=== PATIENT | female | born 1940 | race Caucasian/White ===

== ENCOUNTER 2017-01-03 07:00 | Inpatient (IN) | payer OTHER ==
[~2017-01-03] VITALS: Ht 162.6 cm; Wt 55.3 kg
[~2017-01-03 07:00] MED LIST: ASPIRIN EC81 M1 PO; NADOLOL20 M1 PO; RESTASIS1 EACH OPH
--- NOTE | 2017-01-22 14:14 | RADIOLOGY REPORT ---
EXAMINATION: XR HIP, RIGHT CLINICAL INFORMATION: Postoperative COMPARISON: None TECHNIQUE: Two views of the right hip. FINDINGS: Prosthetic components of the right total hip arthroplasty are appropriately aligned. No periprosthetic fracture. Gas from recent surgery is present in the surrounding soft tissues. IMPRESSION: Normal postoperative appearance of the right total hip prosthesis.
--- NOTE | 2017-01-22 15:08 | Admission Core Measures ---
Admission Meds I reviewed the following Meds: Current Medications Sig/Sarina Start time Last Medication Dose Stop Time Status Admin Acetaminophen 975 MG ONCE 01/22 AC (Tylenol) 01/22 2359 Artificial Tears 2 GTT BID 01/22 2200 AC (Tears Natural) Cefazolin Sodium 2,000 MG ONCE 01/22 NR (Kefzol-Ancef Inj) 01/22 2359 Nadolol 10 MG DAILY 01/23 1000 AC (Corgard) Oxycodone HCl 10 MG ONCE 01/22 AC (Roxicodone) 01/22 2359 Acute Coronary Syndrome Inclusion Criteria ACS Diagnosis No Inpatient Core Measures LDL Reminder: If No, please order W/I first 24hr of stay Congestive Heart Failure Inclusion Criteria CHF Diagnosis No Cerebrovascular accident Inclusion Criteria CVA/TIA Diagnosis No Inpatient Core Measures Bedside Swallow Eval Reminder: If BSE failed, place ST order Antithrombotic Reminder: Order Antithrombotic Medication by end of day 2 Antithrombotic Reminder: Document Reason Antithrombotic Not ordered by end of day 2 AFIB/Flutter Reminder: If Present, add to problem list AFIB/Flutter Reminder: Order Anticoag Medication for pts with AFIB/Flutter Atherosclerosis Reminder: If Present, add to problem list LDL Reminder: If No, please order W/I first 24hr of stay PT Order Reminder: If No, please order Venous thromboembolism Inpatient Core Measures VTE Risk Factors: Age > 40, Surgery No [facility] VTE prophylaxis d/t No contraindications No VTE Pharm Prophylaxis d/t No contraindications Inclusion Criteria - Per Current guidelines, there needs to be overlap - treatment for the first 5 days of Warfarin therapy. - Parenteral Anticoagulation (IV or SC) needs to be - given along with Warfarin therapy. VTE Diagnosis No VTE Type NONE VTE Confirmed by (Test) NONE Problem List As ranked by this Provider includes Assessment & Plan 1. Unilateral primary osteoarthritis, right hip HOME MEDS Home Med List Aspirin (Ecotrin*) 81 MG TABLET.DR 1 TAB PO DAILY CAD (Reported) Cyclosporine (Restasis) 0.05 % DROPERETTE 1 GTT OPH BID DRY EYE (Reported) Nadolol 20 MG TABLET 0.5 TAB PO DAILY BP (Reported)
[2017-01-22] MEDS ORDERED: ASPIRIN EC81 M1 PO (15:15)
[2017-01-22] MEDS ORDERED: DILAUDID2 M1 PO (15:15)
[2017-01-22] MEDS ORDERED: MIRALAX17 G1 PO (15:15)
[2017-01-22] MEDS ORDERED: COLACE100 M1 PO (15:15)
--- NOTE | 2017-01-22 15:23 | Patient Discharge Instructions ---
Discharge Instructions General Discharge Information You were seen/treated for: Right hip pain related to unilateral primary osteoarthritis You had these procedures: Right total hip replacement Watch for these problems: Increasing pain despite the use of pain medication Increasing redness, warmth or swelling Drainage of any type from incision Inability to bear weight on operative leg Persistent nausea and vomiting Fever greater than 101.5 degrees Do not soak the wound: Yes No bath, but you may shower: Yes Other wound care: Please keep wound clean and dry. No ointments or lotions of any type on or near incision at any time. No exceptions. Your dressing will be changed by your nurse on the second day after your surgery. Daily dry dressing changes are recommended each day thereafter. Do not soak your wound in a bath at any time until otherwise indicated by your surgeon. You may shower, please dry wound immediately after shower with a clean towel. Special Instructions: Aspirin: You are taking this medication to help prevent blood clot formation. Please take with food to protect your stomach lining. Please take as directed. Constipation: Pain medication can cause constipation. Dr. Patel has recommended that you take Colace and miralax each day. You may discontinue this medication if you develop loose stool or diarrhea. If you wish to continue this medication, it is available over the counter. If you are unable to move your bowels after several days, if you are unable to pass gas and are developing bloating, nausea, or vomiting as a result, please contact your doctor. Diet Continue normal diet: Yes Recommended Diet: Regular Activity Full Activity/No Limits: No Activity Self Limited: Yes Pounds, do NOT lift more than: 10 Activity Limited to: Weight bear as tolerated Acute Coronary Syndrome Inclusion Criteria At DC or during hospital stay patient has or had the following: ACS DIAGNOSIS No Discharge Core Measures Meds if any: Prescribed or Continued at Discharge Meds if any: NOT Prescribed or Continued at Discharge Congestive Heart Failure Inclusion Criteria At DC or during hospital stay patient has or had the following: CHF DIAGNOSIS No Discharge Core Measures Meds if any: Prescribed or Continued at Discharge Meds if any: NOT Prescribed or Continued at Discharge Cerebrovascular accident Inclusion Criteria At DC or during hospital stay patient has or had the following: CVA/TIA Diagnosis No Discharge Core Measures Meds if any: Prescribed or Continued at Discharge Meds if any: NOT Prescribed or Continued at Discharge Venous thromboembolism Inclusion Criteria VTE Diagnosis No VTE Type NONE VTE Confirmed by (Test) NONE Discharge Core Measures - Per Current guidelines, there needs to be overlap - treatment for the first 5 days of Warfarin therapy. - If discharged on Warfarin prior to 5 days of - overlap therapy, the patient will need to be - assessed for post discharge needs including - *Post discharge parental anticoagulation - *Warfarin and/or parental anticoagulation education - *Follow up date to check INR post discharge At least 5 days overlap therapy as Inpatient No Meds if any: Prescribed or Continued at Discharge Note: Overlap Therapy is Warfarin and Anticoagulant Meds if any: NOT Prescribed or Continued at Discharge
--- NOTE | 2017-01-22 15:24 | Surgical Discharge Summary ---
Visit Information Visit Dates Admission Date: 01/22/17 Discharge Date: 01/25/17 History of Present Illness Chief Complaint: Right hip pain related to unilateral primary osteoarthritis Surgical History Pertinent Surgical History: non-contributory Review of Systems: See H&P Hospital Course Course Attending Physician: DHIRAJ POWERS MD Primary Care Physician: HORTENCIA RICHTER,[facility] Course: Patient was admitted to the hospital for an elective total joint replacement. The procedure was tolerated well and patient was transferred to a general surgical floor. She had some post-operative nausea, that improved after stopping dilaudid. Her pain has been controlled with tramadol. Her diet was advanced as tolerated, and the patient has been voiding without difficulty. The patient was evaluated and treated by physical therapy. At the time of hospital discharge, the vital signs were stable, neurovascular status was intact, and pain was controlled with the use of oral pain medications. Complications: None Allergies: Coded Allergies: ingenol mebutate (From PICATO) (Intermediate, RASH 01/01/17) phenytoin (From DILANTIN) (Intermediate, RASH 01/01/17) NSAIDS (Non-Steroidal Anti-Inflamma (CONTRAINDICATED / HX ULCERS 01/01/17) aspirin (UNKNOWN 01/19/17) ASPIRIN PER ANTIBIOTIC ORDER SHEET OF 01/19/17 (SJS) Disposition Summary Disposition Principal Diagnosis: Right hip unilateral primary osteoarthritis Additional Diagnosis: none Discharge Disposition: home health services Discharge Instructions General Discharge Information Code Status: Full Code Patient's Diet: Advance as tolerated Patient's Activity: WBAT. Rolling walker assistance. Follow-Up Instructions/Appts: Follow up with Dr. Powers in 6 weeks from date of surgery. Please call his office to arrange and/or confirm this appointment. Medications at Discharge Discharge Medications: Stop taking the following medications: Aspirin (Ecotrin*) 81 MG TABLET. ORAL DAILY Continue taking these medications: Nadolol (Nadolol) 20 MG TABLET 0.5 Tablet ORAL DAILY Cyclosporine (Restasis) 0.05 % DROPERETTE 1 Drop In the eye TWICE DAILY Start taking the following new medications: Aspirin (Ecotrin*) 81 MG TABLET. 2 Tablet ORAL TWICE DAILY Qty = 120 No Refills Docusate Sodium (Colace) 100 MG CAPSULE 1 Capsule ORAL TWICE DAILY Qty = 14 No Refills Instructions: DISCONTINUE USE IF YOU DEVELOP LOOSE STOOL OR DIARRHEA Polyethylene Glycol 3350 (Miralax) 17 GRAM POWD.PACK 1 Packet ORAL DAILY Qty = 7 No Refills Instructions: dissolve in water, DISCONTINUE USE IF YOU DEVELOP LOOSE STOOL OR DIARRHEA Famotidine (Pepcid) 20 MG TABLET 1 Tablet ORAL TWICE DAILY Qty = 60 No Refills Tramadol HCl (Tramadol HCl) 50 MG TABLET 1 Tablet ORAL EVERY SIX HOURS NEEDED as needed for pain Qty = 30 No Refills Copies To: HORTENCIA RICHTER,BRIONNA
[2017-01-22] MEDS ORDERED: PEPCID20 M1 PO (15:25)
--- NOTE | 2017-01-22 15:57 | Operative Report ---
Operative/Inv Procedure Report Surgery Date: 01/22/17 Name of Procedure: Right total hip replacement Pre-Operative Diagnosis: Primary right hip DJD Post-Operative Diagnosis: Same Estimated Blood Loss: 250 Surgeon/Azure Architect: PRIYA RICHTER,DHIRAJ Rice Anesthesia: block Operative/Procedure Note Note: Description of Procedure: The patient was taken to the operating room and positively identified. After induction of spinal anesthesia and administration of appropriate pre-operative antibiotics, the patient was positioned supine on the operating room table and all bony prominences were well padded. After performing a surgical timeout, the right lower extremity was prepped and draped in the usual sterile fashion. A direct anterior approach was made to the right hip. The incision was carried sharply through superficial soft tissues to the level of the fascia. Meticulous hemostasis was maintained with Bovie electocautery. The fascia over the tensor fascia ananya muscle was opened sharply and the interval between the TFL and the sartorius was entered bluntly taking care to stay lateral to the lateral femoral cutaneous nerve. Retractors were placed around the femoral neck and the pericapsular fat was identified. The ascending branches of the lateral femoral circumflex vessels were identified and carefully coagulated. The pericapsular fat and anterior capsule were then resected. A napkin ring osteotomy was performed and the femoral head was removed without difficulty. Attention was then turned to the acetabulum. After appropriate placement of retractors, the acetabulum was exposed. Soft tissue was cleaned from the acetabular margin and notch. Overhanging osteophytes were removed and the teardrop was exposed. The acetabulum was then sequentially reamed to accept a 56 mm Michelle Tritanium hemispherical solid back shell. This was impacted into place in the appropriate position and fitted with a 36 mm Trident X3 zero degree polyethylene insert. Attention was then turned to the femur. After performing the appropriate ligament releases, the proximal femur was exposed. It was then sequentially broached to accept a size 5 [place] Accolade 2 stem. This was trialed for leg length and stability. The trial component was removed and the final component was impacted into place. The trunnion was carefully cleaned and fit with a 36 mm, +5 Biolox delta ceramic femoral head. The hip was reduced and put through a full range of motion and found to be stable. The articular space was then irrigated with sterile saline. The periarticular soft tissues were infilitrated with Marcaine. The fascial layer was closed with interrupted #1 vicryl suture and the skin was re-approximated with interrupted 2 -0 vicryl. The skin was closed with a running 3-0 V-Lock suture. Steri-strips and a sterile dressing were applied. The patient was awakened and taken to the recovery room in satisfactory condition.
[2017-01-22 16:30] VITALS: BP 126/68
--- NOTE | 2017-01-22 16:38 | NUR ---
PT ARRIVED AT THIS TIME FROM PACU ALERT ORIENTED X 3 ON RA BP 126/68 HR 66 94% ON RA RR 17, 90.2 ORALLY- WILL CHECK RECTAL ONCE PT IS IN ROOM. PT ASSISTED X 1 WITH GAIT BELT AND RW TO RECLINER CHAIR. +PP STATES SOME NUMBNESS ABLE TO MOVE BLE, DRESSING TO RIGHT HIP CD+I. SKIN INTACT. DENIES PAIN ORIENTED TO ROOM AND CALL CHRISTIE. WILL MONITOR
--- NOTE | 2017-01-22 17:29 | PN- Orthopedic ---
Subjective Subjective: Post op checK: Patient reporting no acute post operative events. Procedure was tolerated well. She is presently sitting at bedside reporting at most a dull ache in the surgical site. She denies chest pain, shortness of breath and difficulty breathing. She denies nausea and vomitting. Objective Vital Signs and I&Os Vital Signs Date Time Temp Pulse Resp B/P B/P Pulse O2 O2 Flow FiO2 Mean Ox Delivery Rate 01/22 1630 90.2 66 18 126/68 94 Room Air Physical Exam: General: Alert and oriented x3, no acute distress Cardiac: RRR, s1s2 Pulm: CTA bilaterally Abdomen: Non-distended Extremities: Moves all extremities, distal sensation intact. Skin warm and well perfused. Bilateral calves soft and non-tender Surgical site: Right groin. Dressing dry and intact. Thigh compartment soft. 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 She is pod 0 s/p right total hip replacement. -DVT ppx: ASA 162 bid, alps -ABX ppx: Ancef 2 gram x2 additional doses -Pain: Offirmev q6h, dilaudid 2-4 mg q4-6 prn with 2 mg of iv morphine q2h for breakthrough -Activity: WBAT -Bowel regimen: Colace bid and miralax daily -GI ppx: Pepsid 20 bid -DIet: Regular, advance as tolerated -D/C iv fluids when voiding and tolerating adequate po -F/U labs in am: CBC, BEP -Incentive spirometer encouraged -Will discuss with DR. Patel Core Measures/Miscellaneous Venous Thromboembolism VTE Risk Factors: Age > 40, Surgery VTE Contraindications: No Contraindications VTE Diagnosis: No VTE Type: NONE VTE Confirmed by (Test): NONE Beta Chana Is Beta Chana a Home Med? No Antibiotics Is Patient on Antibiotics? Yes If Yes: prophylaxis
[2017-01-22 19:03] VITALS: BP 90/60
[2017-01-22 21:00] VITALS: BP 110/60
--- NOTE | 2017-01-22 23:10 | NUR ---
SHIFT NOTE- PT A/O X 3, RA, IST, TOLERATING PO FLUIDS AND DINNER WELL. DENIES NAUSEA. VOIDED 950 CC CLEAR YELLOW URINE IN HAT IN TOLIET. DRESSING TO R HIP REMAINS CD+I. +CMS. +PP +POST TIB PULSES. MIN ASSIST X 1 WITH RW TO AMBULATE IN ROOM. VSS. ALPS IN PLACE. MEDICATED WITH SCHEDULED IV TYLENOL AND PRN DILAUDID X 1 FOR C/O PAIN TO RIGHT HIP WITH STATED RELIEF. IVF INFUSING ORDERED. RECIEVED IV ABX ORDERED. SAFETY PRECAUTIONS MAINTAINED.
[2017-01-22 23:27] VITALS: BP 98/60
[2017-01-23 01:52] VITALS: BP 102/54
[2017-01-23 06:42] VITALS: BP 98/40
[2017-01-23 09:02] LABS: ABSOLUTE BASOPHIL COUNT 0 /CUMM (0.0-0.2); ABSOLUTE EOSINOPHIL COUNT 0 /CUMM (0.0-0.7); ABSOLUTE GRANULOCYTE CT 7.9 /CUMM (1.4-6.5); ABSOLUTE LYMPH COUNT 1.1 /CUMM (1.2-3.4); ABSOLUTE MONOCYTE COUNT 0.8 /CUMM (0.10-0.60); BASOPHIL % 0.4 % (0.0-2.0); EOSINOPHIL % 0.1 % (0-5); GRANULOCYTE % 80.9 % (42.2-75.2); HEMATOCRIT 36.7 % (37-47); MEAN CORPUSCULAR HGB 32.8 PG (27.0-31.0); MEAN CORPUSCULAR HGB CONC 33.5 G/DL (33.0-37.0); MEAN CORPUSCULAR VOLUME 97.7 FL (81.0-99.0); MEAN PLATELET VOLUME 10.1 FL (7.4-10.4); PLATELET COUNT 173 /CUMM (130-400); RBC DISTRIBUTION WIDTH 12.9 % (11.5-14.5); RED BLOOD CELL CT 3.76 /CUMM (4.20-5.40); WHITE BLOOD CELL COUNT 9.8 /CUMM (4.8-10.8)
--- NOTE | 2017-01-23 09:32 | PN- Orthopedic ---
Subjective Subjective: Patient reporting no acute overnight events. She states that her pain was more pronounced in the early am, however, it responds well to po pain medication. She denies chest pain, shortness of breath and difficulty breathing. She did have one episode of emesis following dilaudid and was switched to percocet and is tolerating well. She is voiding. Objective Vital Signs and I&Os Vital Signs Date Time Temp Pulse Resp B/P B/P Pulse O2 O2 Flow FiO2 Mean Ox Delivery Rate 01/23 0642 96.7 62 18 98/40 91 Room Air 01/23 0152 96.5 63 18 102/54 94 Room Air 01/22 2327 96.0 68 20 98/60 93 Room Air 01/22 2100 95.9 70 20 110/60 94 Room Air 01/22 1903 96.0 74 20 90/60 96 Room Air 01/22 1736 95.6 01/22 1630 90.2 66 18 126/68 94 Room Air Intake & Output 01/23 1600 01/23 0800 01/23 0000 01/22 1600 01/22 0800 01/22 0000 Intake Total 800 600 Output Total 700 1000 Balance 100 -400 Intake, IV 600 600 Intake, Oral 200 Output, Urine 700 1000 Patient 122 lb Weight Physical Exam: General: Alert and oriented x3, no acute distress Cardiac: RRR, s1s2 Pulm: C T A bilaterally Abd: Soft andn non-tender, non-distended Extremities: Moves all extremities, distal sensation intact, skin warm and well perfused. DP pulses palpable bilaterally. 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 She is pod 1 s/p right total hip replacement. -Switch dilaudid to oxycodone while in house, plan for discharge on percocet -OOB with pt, wbat -Continue asa 162 bid for dvt ppx -Diet as tolerated -DC iv fluids -FU am labs -Anticipate discharge to home with services tomorrow -Will d/w dr. Patel Core Measures/Miscellaneous Venous Thromboembolism VTE Risk Factors: Age > 40, Surgery VTE Contraindications: No Contraindications VTE Diagnosis: No VTE Type: NONE VTE Confirmed by (Test): NONE Beta Chana Is Beta Chana a Home Med? No Antibiotics Is Patient on Antibiotics? Yes If Yes: prophylaxis
[2017-01-23] MEDS ORDERED: PERCOCET 5-3251 EACH PO (11:31)
--- NOTE | 2017-01-23 13:55 | NUR ---
PHYSICAL THERAPY: Pt WITH GUESTS PRESENT AND AGREEABLE TO GET OOB WITH PT. REPORTING NAUSEA AND HAS REFUSED ANY ANTI NAUSEA MEDICINE BECAUSE SHE DOES NOT LIKE FEELING "LOOPY" PER NURSING. CANCELLING TREATMENT TODAY 2/2 Pt ACTIVELY VOMITTING. WILL FOLLOW UP WHEN APPROPRIATE. THANK YOU.
[2017-01-23 14:53] VITALS: BP 118/70
[2017-01-23 22:07] VITALS: BP 120/58
[2017-01-24 06:30] VITALS: BP 112/70
[2017-01-24] MEDS ORDERED: TRAMADOL HCL50 M1 PO (08:09)
--- NOTE | 2017-01-24 08:09 | PN- Orthopedic ---
Subjective Subjective: Patient reporting improvement in nausea overnight, has not vomitted since yesterday afternoon. Pain is intermittent, mainly in groin. She has been able to ambulate and was cleared for discharge to home by physical therapy. She denies chest pain, shortness of breath and difficulty breathing. She has been voiding. She has been passing flatus. She has yet to move her bowels. Objective Vital Signs and I&Os Vital Signs Date Time Temp Pulse Resp B/P B/P Pulse O2 O2 Flow FiO2 Mean Ox Delivery Rate 01/24 0630 98.7 81 18 112/70 96 Room Air 01/23 2207 98.2 75 20 120/58 97 01/23 2147 75 120/58 01/23 1453 97.6 68 18 118/70 93 Room Air Intake & Output 01/24 0800 01/24 0000 01/23 1600 01/23 0800 01/23 0000 01/22 1600 Intake Total 120 390 580 800 600 Output Total 1500 300 330 137 9407 Balance -1380 90 -220 100 -400 Intake, IV 150 100 600 600 Intake, Oral 120 240 480 200 Number 0 Bowel Movements Output, 200 Emesis Output, Urine 1500 300 840 182 9998 Patient 122 lb Weight Physical Exam: General: Alert and oriented x3, no acute distress Cardiac: RRR, s1s2 Pulm: C T A bilaterally Abdomen: Non-tender, non-distended Extremities: Moves all extremities, distal sensation intact, skin warm and well perfused. DP pulses palpable. Bilateral calves soft and non-tender Dressing: Changed. Steri strips in place, dry and intact. Bruising noted around incision, mild swelling. Thigh compartment soft. Assessment/Plan Assessment/Plan This is a 76 year old female, POD 2, s/p R THR. Post operative course complicated by nausea and vomitting. Pain medications have been changed from dilaudid to tramadol with good effect -Continue tramadol po q4 hours as needed for now, assess nausea -No iv nsaids, hx of ulcer -Continue asa 162 bid for dvt ppx -Continue oob -Plan for discharge to home when tolerating po -Will discuss with Dr Patel Core Measures/Miscellaneous Venous Thromboembolism VTE Risk Factors: Age > 40, Surgery VTE Contraindications: No Contraindications VTE Diagnosis: No VTE Type: NONE VTE Confirmed by (Test): NONE Beta Chana Is Beta Chana a Home Med? No Antibiotics Is Patient on Antibiotics? Yes If Yes: prophylaxis
[2017-01-24 15:08] VITALS: BP 134/62
[2017-01-24 21:53] LABS: ABSOLUTE BASOPHIL COUNT 0 /CUMM (0.0-0.2); ABSOLUTE EOSINOPHIL COUNT 0 /CUMM (0.0-0.7); ABSOLUTE GRANULOCYTE CT 6.1 /CUMM (1.4-6.5); ABSOLUTE LYMPH COUNT 1.2 /CUMM (1.2-3.4); ABSOLUTE MONOCYTE COUNT 0.7 /CUMM (0.10-0.60); BASOPHIL % 0.5 % (0.0-2.0); EOSINOPHIL % 0.5 % (0-5); GRANULOCYTE % 75.8 % (42.2-75.2); HEMATOCRIT 40.8 % (37-47); MEAN CORPUSCULAR HGB 32.4 PG (27.0-31.0); MEAN CORPUSCULAR HGB CONC 33.1 G/DL (33.0-37.0); MEAN CORPUSCULAR VOLUME 97.7 FL (81.0-99.0); MEAN PLATELET VOLUME 9.8 FL (7.4-10.4); PLATELET COUNT 169 /CUMM (130-400); RBC DISTRIBUTION WIDTH 12.6 % (11.5-14.5); RED BLOOD CELL CT 4.17 /CUMM (4.20-5.40); WHITE BLOOD CELL COUNT 8.1 /CUMM (4.8-10.8)
[2017-01-24 22:41] VITALS: BP 142/82
--- NOTE | 2017-01-25 00:14 | NUR ---
LATE ENTRY: 01/24/17 PT COMPLAINING OF NAUSEA FOR THE LAST 48 HOURS. NO VOMITTING THIS DAY. UNABLE TO TOLERATE ZOFRAN AND RELUCTANT TO TRY OTHER MEDS. THIS RN ENCOURAGED PHENERGEN. PT WANTED TO SPEAK WITH SURGICAL PA. SURGICAL PA CLAUDIA KABA SPOKE W/FAMILY/PT. ORDERED BLOOD WORK TO CHECK ELECTROLYTES. PT AGREED TO TAKE PHENERGEN. PT WILL CONTINUE TO BE MONITORED FOR UNRESOLVED NAUSEA.
[2017-01-25 06:47] VITALS: BP 138/70
[2017-01-25 08:37] LABS: ABSOLUTE BASOPHIL COUNT 0 /CUMM (0.0-0.2); ABSOLUTE EOSINOPHIL COUNT 0.1 /CUMM (0.0-0.7); ABSOLUTE GRANULOCYTE CT 4.3 /CUMM (1.4-6.5); ABSOLUTE LYMPH COUNT 1.4 /CUMM (1.2-3.4); ABSOLUTE MONOCYTE COUNT 0.7 /CUMM (0.10-0.60); BASOPHIL % 0.4 % (0.0-2.0); GRANULOCYTE % 65.6 % (42.2-75.2); MEAN CORPUSCULAR HGB 32.6 PG (27.0-31.0); MEAN CORPUSCULAR HGB CONC 33.6 G/DL (33.0-37.0); MEAN PLATELET VOLUME 10.5 FL (7.4-10.4); PLATELET COUNT 163 /CUMM (130-400); RBC DISTRIBUTION WIDTH 12.8 % (11.5-14.5); RED BLOOD CELL CT 3.68 /CUMM (4.20-5.40); WHITE BLOOD CELL COUNT 6.6 /CUMM (4.8-10.8)
--- NOTE | 2017-01-25 09:02 | PN- Orthopedic ---
Subjective Subjective: Feeling much better this morning. Nausea resolved. Tolerated breakfast. Pain controlled. Voiding well. No bm yet, but passing flatus. She is anticipating discharge to home today. Objective Vital Signs and I&Os Vital Signs Date Time Temp Pulse Resp B/P B/P Pulse O2 O2 Flow FiO2 Mean Ox Delivery Rate 01/25 0647 99.8 95 18 138/70 93 Room Air 01/24 2241 98.3 74 20 142/82 96 Room Air 01/24 2118 72 142/82 01/24 1508 98.6 73 20 134/62 97 Intake & Output 01/25 1600 01/25 0801/25 0000 01/24 1600 01/24 0800 01/24 0000 Intake Total 100 240 360 120 390 Output Total 4189 169 8536 300 Balance -1850 -510 360 -1380 90 Intake, IV 150 Intake, Oral 100 240 360 120 240 Number 0 0 0 Bowel Movements Output, Urine 6519 133 3258 300 Physical Exam: General - alert & oriented x 3. comfortable. no acute distress. Lungs - clear bilaterally. no w/r/r. Cardiac - s1s2. reg. Abdomen - soft. nontender. Extremities - warm bilaterally. right hip dressing removed. incision approximated with steri strips. no erythema or exudates. nvi. calves soft and nontender b/l. Current Medications: Current Medications Sig/Sarina Start time Last Medication Dose Route Stop Time Status Admin Acetaminophen 650 MG Q4P PRN 01/23 1800 AC PO Artificial Tears 2 GTT BID 01/22 2200 AC 01/23 OU 1015 Aspirin Buffered 162 MG BID 01/22 2200 AC 01/25 PO 0854 Docusate Sodium 100 MG BID 01/22 2200 AC 01/25 PO 0854 Famotidine 20 MG BID 01/22 2200 AC 01/25 PO 0854 Morphine Sulfate 2 MG Q2P PRN 01/22 164 AC IV Nadolol 10 MG AT BEDTIME 01/22 2200 AC 01/24 PO 2117 Omeprazole 20 MG DAILY AC 01/25 07 AC 01/25 PO 0552 Ondansetron HCl 4 MG Q6P PRN 01/22 1645 AC 01/23 IV 0852 Polyethylene Glycol 17 GM DAILY 01/23 1000 AC 01/25 PO 0855 Promethazine HCl 12.5 MG Q6P PRN 01/22 1645 AC 01/24 IV 01/29 1429 2102 Scopolamine HBr 1 PAT ONE ONE 01/24 2100 DC TOP 01/24 2101 Tramadol HCl 50 MG Q4P PRN 01/23 1800 AC 01/25 PO 0552 Results Last 48 Hours of Labs: Laboratory Tests 01/25 01/24 0620 2135 Chemistry Sodium (137 - 145 mmol/L) 135 L 131 L Potassium (3.5 - 5.1 mmol/L) 3.7 4.3 Chloride (98 - 107 mmol/L) 100 94 L Carbon Dioxide (22 - 30 mmol/L) 28 31 H Anion Gap (5 - 16) 7 6 BUN (7 - 17 mg/dL) 7 9 Creatinine (0.5 - 1.0 mg/dL) 0.5 0.6 Estimated GFR (>60 ml/min) > 60 > 60 BUN/Creatinine Ratio (7 - 25 %) 14.0 15.0 Phosphorus (2.5 - 4.5 mg/dL) 3.1 Magnesium (1.6 - 2.3 mg/dL) 1.8 Hematology CBC w Diff Pending NO MAN DIFF REQ WBC (4.8 - 10.8 /CUMM) Pending 8.1 RBC (4.20 - 5.40 /CUMM) Pending 4.17 L Hgb (12.0 - 16.0 G/DL) Pending 13.5 Hct (37 - 47 %) Pending 40.8 MCV (81.0 - 99.0 FL) Pending 97.7 MCH (27.0 - 31.0 PG) Pending 32.4 H RDW (11.5 - 14.5 %) Pending 12.6 Plt Count (130 - 400 /CUMM) Pending 169 MPV (7.4 - 10.4 FL) Pending 9.8 Gran % (42.2 - 75.2 %) 75.8 H Lymphocytes % (20.5 - 51.1 %) 14.2 L Monocytes % (1.7 - 9.3 %) 9.0 Eosinophils % (0 - 5 %) 0.5 Basophils % (0.0 - 2.0 %) 0.5 Absolute Granulocytes (1.4 - 6.5 /CUMM) 6.1 Absolute Lymphocytes (1.2 - 3.4 /CUMM) 1.2 Absolute Monocytes (0.10 - 0.60 /CUMM) 0.7 H Absolute Eosinophils (0.0 - 0.7 /CUMM) 0 Absolute Basophils (0.0 - 0.2 /CUMM) 0 PUBS MCHC (33.0 - 37.0 G/DL) Pending 33.1 Assessment/Plan Assessment/Plan This 76 year old female with hx htn, ulcers, mvr, hx cva, now POD#3 s/p right total hip replacement for primary right hip DJD, improved nausea after stopping dilaudid tolerating diet pain controlled with tramadol asa bid - dvt ppx dressing changed continue PT lytes stable d/c home today with services if cleared by PT will d/w Core Measures/Miscellaneous Venous Thromboembolism VTE Risk Factors: Age > 40, Surgery VTE Contraindications: No Contraindications VTE Diagnosis: No VTE Type: NONE VTE Confirmed by (Test): NONE Beta Chana Is Beta Chana a Home Med? No Antibiotics Is Patient on Antibiotics? Yes If Yes: prophylaxis
[2017-01-25 09:11] LABS: HEMATOCRIT 35.7 % (37-47)
[2017-01-25 15:37] VITALS: BP 98/58
== END 2017-01-25 15:41 | disposition home health service (06) | DRG 470 ==
LOC: SDA 01-22 04:43 → ENRESERV 01-22 14:53 → ENTRNSPT 01-22 15:43 → 2NA 01-22 16:37 → CMPTRNSPT 01-22 16:50 → ENPENDDIS 01-25 09:28 → 2NA 01-25 15:41
PROVIDERS: Nurse Practitioner; ADMIT Orthopaedic Surgery
PROC: 0SR904A Replacement of Right Hip Joint with Ceramic on Polyethylene Synthetic Substitute, Uncemented, Open Approach (ICD-10-PCS; principal; 2017-01-22)
DX: M16.11 Unilateral primary osteoarthritis, right hip (principal); I10 Essential (primary) hypertension; M25.751 Osteophyte, right hip; Z87.11 Personal history of peptic ulcer disease; Z85.07 Personal history of malignant neoplasm of pancreas; H04.123 Dry eye syndrome of bilateral lacrimal glands; Z86.73 Personal history of transient ischemic attack (TIA), and cerebral infarction without residual deficits; Z95.2 Presence of prosthetic heart valve
CPT/HCPCS: 2NASP; 36415; 73502-RT; 82436; 88304; 97110-GO; 97116-GO; 97161-GP; 97530-GO; J0131; J0690; J0735; J2405; J2550; J7042